=== PATIENT | male | born 1990 | race Caucasian/White ===

== ENCOUNTER 2018-02-06 18:48 | Emergency (ER) | payer MEDICAID ==
[~2018-02-06] VITALS: Ht 182.9 cm; Wt 81.6 kg
[2018-02-06 19:04] VITALS: Ht 182.9 cm; Wt 81.6 kg
[2018-02-06 20:38] VITALS: BP 167/100
== END 2018-02-06 20:05 | disposition home or self-care (01) ==
LOC: ED 18:48
DX: H66.93 Otitis media, unspecified, bilateral (principal); H60.93 Unspecified otitis externa, bilateral